=== PATIENT | female | born 1975 | race Native Hawaiian/Other Pacific Islander ===

== ENCOUNTER 2018-07-11 10:11 | Outpatient (CLI) | payer BC | END 2018-07-11 19:08 | disposition home or self-care (01) | LOC: MAMMO 10:11 | DX: Z12.31 Encounter for screening mammogram for malignant neoplasm of breast (principal) ==

== ENCOUNTER 2018-08-01 14:33 | Outpatient (CLI) | payer BC | END 2018-08-01 20:53 | disposition home or self-care (01) | LOC: MAMMO 14:33 | DX: R92.8 Other abnormal and inconclusive findings on diagnostic imaging of breast (principal) ==